=== PATIENT | female | born 1985 | race Caucasian/White ===

== ENCOUNTER 2018-10-30 10:54 | Emergency (ER) | payer OTHER ==
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
[2018-10-30 13:33] VITALS: BP 100/86
== END 2018-10-30 13:32 | disposition home or self-care (01) ==
LOC: ED 10:54
DX: S09.90XA Unspecified injury of head, initial encounter (principal); V40.5XXA Car driver injured in collision with pedestrian or animal in traffic accident, initial encounter; Y92.410 Unspecified street and highway as the place of occurrence of the external cause; M25.512 Pain in left shoulder; M54.2 Cervicalgia; Z88.1 Allergy status to other antibiotic agents
CPT/HCPCS: 72050; 99282

== ENCOUNTER 2020-01-08 14:34 | Emergency (ER) | payer BC, OTHER ==
[2020-01-08] MEDS ORDERED: NS 0.9% 1000 ML** 1,000 ML IV ONE (16:52)
--- NOTE | 2020-01-08 16:53 | ED ---
Complex/Multi-Sys Presentation - HPI Summary HPI Summary: 34 year old female presents with fevers for the past week. She's been having chills and fatigue. She states that her she's been having pain on her thumbs and toes. She has noticed discoloration to her toes. She states that she is also been having dental pain. Has follow up with oral surgeon and was told that she has stones in her salivary glands. She denies a sore throat. She admits to headache. No sinus congestion. She denies any cough. She denies any abd pain., n/v/d. She admits to dysuria. - History Of Current Complaint Chief Complaint: EDGeneral Time Seen by Provider: 01/08/20 16:36 - Allergies/Home Medications Allergies/Adverse Reactions: Allergies Allergy/AdvReac Type Severity Reaction Status Date / Time tetracycline Allergy Anaphylatic Verified 01/08/20 14:43 Shock PMH/Surg Hx/FS Hx/Imm Hx Endocrine/Hematology History: Denies: Hx Anticoagulant Therapy Respiratory History: Denies: Hx Asthma Infectious Disease History: No Infectious Disease History: Denies: Traveled Outside the [place] in Last 30 Days - Family History Known Family History: Positive: Non-Contributory - Social History Alcohol Use: Weekly Alcohol Amount: 4 drinks/week Hx Substance Use: No Substance Use Type: Reports: Marijuana Substance Use Comment - Amount & Last Used: occasions Hx Tobacco Use: No Smoking Status (MU): Never Smoked Tobacco Review of Systems Positive: Fever, Chills, Fatigue Positive: Dental Pain Negative: Chest Pain Negative: Shortness Of Breath Positive: dysuria Positive: Myalgia - thumb and toe pain All Other Systems Reviewed And Are Negative: Yes Physical Exam Triage Information Reviewed: Yes Vital Signs On Initial Exam: Initial Vitals Temp Pulse Resp BP Pulse Ox 98.6 F 95 16 138/92 100 01/08/20 14:40 01/08/20 14:40 01/08/20 14:40 01/08/20 14:40 01/08/20 14:40 Vital Signs Reviewed: Yes Appearance: Positive: Well-Appearing Skin: Positive: Warm, Dry Head/Face: Positive: Normal Head/Face Inspection Eyes: Positive: Normal, EOMI, LATHA, Conjunctiva Clear ENT: Positive: Pharynx normal, TMs normal Dental: Positive: Other - tenderness parotid duct, nontender over whartons or freya duct, no erthyema to the area Respiratory/Lung Sounds: Positive: Clear to Auscultation, Breath Sounds Present Cardiovascular: Positive: Normal, RRR Abdomen Description: Positive: Nontender, Soft Bowel Sounds: Positive: Present Musculoskeletal: Positive: Strength/ROM Intact - hands and feet Neurological: Positive: Normal Psychiatric: Positive: Normal Procedures - Sedation Patient Received Moderate/Deep Sedation with Procedure: No Diagnostics - Vital Signs Vital Signs Temp Pulse Resp BP Pulse Ox 01/08/20 14:40 98.6 F 95 16 138/92 100 - Laboratory Result Diagrams: 01/08/20 17:06 01/08/20 17:06 Lab Statement: Any lab studies that have been ordered have been reviewed, and results considered in the medical decision making process. - Radiology chest Radiology Interpretation Completed By: Radiologist Summary of Radiographic Findings: IMPRESSION: NO EVIDENCE FOR ACTIVE CARDIOPULMONARY DISEASE. Re-Evaluation - Re-Evaluation First Eval Re-Evaluation Time: 18:07 Change: Improved Comment: feeling better after fluids Complex Multi-Symp Course/Dx Course Of Treatment: 34 year old female presents with fevers for the past week. She's been having chills and fatigue. She states that her she's been having pain on her thumbs and toes. She has noticed discoloration to her toes. She states that she is also been having dental pain. Has follow up with oral surgeon and was told that she has stones in her salivary glands. She denies a sore throat. She admits to headache. No sinus congestion. She denies any cough. She denies any abd pain., n/v/d. She admits to dysuria. On exam pharynx normal. Tenderness of her parotid duct nontender over whartons and Stensen's duct. No erythema to the area. lungs CTA. abd soft nontender. urine shows uti. amylase normal. discussed that does not seem like salivary gland is infected at this time. told to massage area and placed heat. likely has viral syndrome. will place on augmentin for uti and prevent salivary gland infection. told follow up with primary and oral surgery. patient understand and agrees with plan. - Diagnoses Differential Diagnoses/HQI/PQRI: Metabolic Abnormality, Sepsis, Urinary Tract Infection Provider Diagnoses: UTI (urinary tract infection), Viral syndrome, Salivary stones Discharge ED - Sign-Out/Discharge Documenting (check all that apply): Patient Departure - Discharge Plan Condition: Good Disposition: HOME Prescriptions: Amoxicillin/Clavulanate TAB* [Augmentin TAB 500 mg*] 500 mg PO BID #9 tab Patient Education Materials: Urinary Tract Infection in Women (ED) Referrals: Davon ORTEGA,Best Grover [Primary Care Provider] - Additional Instructions: Take augmentin twice a day for 5 days drink plenty of fluids take tyenlol or ibuprofen every 6 hours for pain apply heat to jaw and massage area suck on hard candies Follow up with primary within 5 days Return to ED if develop any new or worsening symptoms - Billing Disposition and Condition Condition: GOOD Disposition: Home
[2020-01-08 17:16] LABS: ABS Basophils 0.1 10^3/ul (0-0.2); ABS Eosinophils 0.4 10^3/ul (0-0.6); ABS Lymphocytes 2.9 10^3/ul (1.0-4.8); ABS Monocytes 0.6 10^3/ul (0-0.8); Eosinophil % 3.3 %; Hematocrit 41 % (35-47); Hemoglobin 14.4 g/dL (12.0-16.0); Lymphocyte % 26.1 %; Mean Corpuscular HGB Conc 35 g/dL (31-36); Mean Corpuscular Hemoglobin 30 pg (27-31); Mean Corpuscular Volume 85 fL (80-97); Mean Platelet Volume 9.9 fL (7.4-10.4); Platelet Count 311 10^3/uL (150-450); Red Cell Distribution Width 13 % (10-15); White Blood Count 11.1 10^3/uL (3.5-10.8)
[2020-01-08 17:37] LABS: ALT 18 U/L (7-52); AST 21 U/L (13-39); Albumin 4.7 g/dL (3.2-5.2); Albumin/Globulin Ratio 1.5 (1-3); Alkaline Phosphatase 92 U/L (34-104); Amylase 56 U/L (29-103); Anion Gap 7 mmol/L (2-11); BUN/Creatinine Ratio 15.1 (8-20); Blood Urea Nitrogen 11 mg/dL (6-24); C Reactive Protein 4.23 mg/L (<8.01); CO2 Carbon Dioxide 25 mmol/L (22-32); Calcium 9.8 mg/dL (8.6-10.3); Chloride 106 mmol/L (101-111); EGFR African American 109.2 (>60); EGFR Non-African American 90.2 (>60); Globulin 3.1 g/dL (2-4); Glucose 99 mg/dL (70-100); Potassium 3.6 mmol/L (3.5-5.0); Sodium 138 mmol/L (135-145); Total Protein 7.8 g/dL (6.4-8.9)
[2020-01-08 17:40] LABS: HCG Pregnancy < 0.60 mIU/mL
[2020-01-08 18:33] LABS: Influenza A Molecular Negative (Negative); Influenza B Molecular Negative (Negative)
[2020-01-08 18:48] LABS: Urine Appearance Cloudy; Urine Bilirubin Negative (Negative); Urine Blood Negative (Negative); Urine Color Yellow; Urine Glucose Negative (Negative); Urine Ketones Negative (Negative); Urine Nitrite Negative (Negative); Urine Protein Negative (Negative); Urine Specific Gravity 1.018 (1.010-1.030); Urine Urobilinogen Negative (Negative)
[2020-01-08 18:52] LABS: Urine Bacteria Absent (Absent); Urine Red Blood Cell 2+(6-10/hpf) (Absent); Urine Squamous Epithelial Cell Present (Absent); Urine White Blood Cell 1+(6-10/hpf) (Absent)
[2020-01-08] MEDS ORDERED: Amoxicillin/Clavulanate TAB* 500 MG PO ONE (19:11)
[2020-01-08 19:35] VITALS: BP 111/83
== END 2020-01-08 19:34 | disposition home or self-care (01) ==
LOC: ED 14:34
DX: R50.9 Fever, unspecified (principal); K08.89 Other specified disorders of teeth and supporting structures; R30.0 Dysuria; N39.0 Urinary tract infection, site not specified; B34.9 Viral infection, unspecified; K11.5 Sialolithiasis; Z88.1 Allergy status to other antibiotic agents; R53.83 Other fatigue
CPT/HCPCS: 36415; 71046; 80053; 81003; 81015; 82150; 83605; 83735; 84702; 85025; 86140; 87040; 87086; 99283; A9270-GY